=== PATIENT | female | born 1980 | race Caucasian/White ===

== ENCOUNTER 2018-02-02 22:43 | Emergency (ER) | payer MEDICAID, OTHER ==
[2018-02-02 23:04] VITALS: BP 123/64
[2018-02-02] MEDS ORDERED: KETOROLAC 60 MG/2 ML VIAL IM STA (23:33)
[2018-02-02] MEDS ORDERED: DEXAMETHASONE 10 MG/ML VIAL PO STA (23:33)
[2018-02-02] MEDS ORDERED: CHERRY SYRUP 10 ML UDC PO ONE (23:44)
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
== END 2018-02-03 00:43 | disposition home or self-care (01) ==
LOC: ED 22:43
DX: Z04.1 Encounter for examination and observation following transport accident (principal); M54.6 Pain in thoracic spine
CPT/HCPCS: 72070; 96372; 99283; A9270

== ENCOUNTER 2020-10-14 22:50 | Emergency (ER) | payer SELFPAY ==
--- OUTSIDE RECORDS SUMMARY | 2020-10-14 22:59 | EXTERNAL MEDICAL SUMMARY RPT | Continuity of Care Document ---
:1980 Demographics Phone Unavailable Preferred Language Unknown Marital Status Unknown Yazdanism Affiliation Unknown Race Unknown Ethnic Group Unknown Author Organization [facility] Address [address] [phone] Phone Social History date description facility [id number]
[2020-10-15] MEDS ORDERED: BUFFERED LIDOCAINE 10 ML SYRINGE SUBQ STA (00:56)
[2020-10-15] MEDS ORDERED: IBUPROFEN 600 MG TABLET PO STA (02:23)
--- NOTE | 2020-10-15 02:27 | ED Physician Documentation ---
History of Present Illness - Stated complaint Stated Complaint: R KNEE PX - Chief complaint Chief Complaint: Ext Problem - History obtained from History obtained from: Patient - Additonal information Additional information: 40-year-old woman, previously healthy presents with right knee pain and swelling progressively worsening, gradual in onset over the past 5 days, aching, worse with range of motion of the knee and ambulation, nonradiating and constant. Denies redness, fevers, traumatic injury, swelling anywhere else. Denies family history of rheumatoid arthritis, gout, or other joint issues. Review of Systems Ten Systems: 10 systems reviewed and negative Constitutional: denies: Fever, Chills Skin: denies: Rash, Lesions, Abrasion (s) Musculoskeletal: reports: Joint pain, Joint swelling Neurologic: denies: Focal weakness, Numbness PD PAST MEDICAL HISTORY - Past Medical History Past Medical History: No - Past Surgical History Past Surgical History: No - Present Medications Home Medications: Ambulatory Orders Medication Instructions Recorded Confirmed No Known Home Medications 10/14/20 10/14/20 - Allergies Allergies/Adverse Reactions: Allergies Allergy/AdvReac Type Severity Reaction Status Date / Time No Known Drug Allergies Allergy Verified 10/14/20 23:04 - Social History Does the pt smoke?: No Smoking Status: Never smoker Does the pt drink ETOH?: No Does the pt have substance abuse?: No - Immunizations Immunizations are current?: Yes - POLST Patient has POLST: No PD ED PE NORMAL - Vitals Vital signs reviewed: Yes - General General: Alert and oriented X 3, No acute distress, Well developed/nourished - HEENT HEENT: Atraumatic, PERRL, EOMI - Derm Derm: Normal color, Warm and dry, No rash - Extremities Extremities: No deformity, Other (Right knee discomfort with range of motion. Right knee palpable swelling. No calor or rubor compared to the left.) - Neuro Neuro: Alert and oriented X 3, No motor deficit, No sensory deficit - Psych Psych: Normal mood, Normal affect Results - Vitals Vitals: Vital Signs - 24 hr 10/14/20 23:00 Temperature 36.1 C L Heart Rate 87 Respiratory 16 Rate Blood Pressure 123/85 H O2 Saturation 99 Oxygen O2 Source Room air Procedures - Arthrocentesis Joint: Knee, Right Preparation: Consent obtained, Sterile prep and drape Anesthesia: Lidocaine 1% Fluid: Clear, Sent for cell count, Sent for crystals, Sent for culture, Fluid obtained - cc (40), Sent for gram stain Aftercare: Dressing applied, No complications, Patient tolerated well PD MEDICAL DECISION MAKING - ED course ED course: 40-year-old woman presents with right knee effusion of unknown origin. Arthrocentesis was performed successfully with minimal EBL and patient tolerated well. Sample was sent to the lab. Patient stated that she would prefer not to wait for the results and will follow up with her primary doctor. Strict return precautions given. Orthopedics referral also given. Departure - Departure Disposition: 01 Home, Self Care Clinical Impression: Knee effusion, right Condition: Good Instructions: ED Effusion Knee, ED RICE Follow-Up: Panfilo Cochran MD [Provider Admit Priv/Credential] - Comments: You were seen in the emergency department for a knee effusion. This means that you have a buildup of fluid in the joint of the knee. I removed 40 mL of fluid via arthrocentesis and sent it to the lab for analysis. You will need to follow-up with your primary doctor this week in regards to the results, which you can access on your patient health portal if you make an account on the [facility] website. You can create a username and password and then login to receive your results. Please call the [facility] main number if you need help making your account. Follow-up with your primary doctor this week and return to the emergency department if you experience any new or worsening symptoms or have other concerns.
[2020-10-15 02:32] VITALS: BP 117/73
[2020-10-15 02:48] LABS: CC,BF RBC < 3000 /mm^3
[2020-10-15 02:49] LABS: BF CLARITY CLEAR; BF SOURCE SYNOVIAL; CC,BF WBC 327 /mm^3
[2020-10-15 02:50] LABS: BF COLOR STRAW
[2020-10-15 03:57] LABS: LYMPHOCYTES %,BODY FLUID 18 %; NEUTROPHILS %, BF 9 %
[2020-10-15 04:01] LABS: MONOCYTES %,BODY FLUID 73 %
--- NOTE | 2020-10-15 07:49 | XRAY Report ---
PROCEDURE: Knee 2 View RT INDICATIONS: knee pain TECHNIQUE: 2 views of the right knee were acquired. COMPARISON: None. FINDINGS: Bones: No fractures or dislocations. There is mild joint space narrowing in the medial compartment. No suspicious bony lesions. Soft tissues: There is a small joint effusion. No suspicious soft tissue calcifications. IMPRESSION: 1. No fracture or dislocation. 2. Small joint effusion. Reviewed by: Moise Phillips MD on 10/15/2020 7:48 AM PDT Approved by: Moise Phillips MD on 10/15/2020 7:48 AM PDT Station ID: [id number]
== END 2020-10-15 02:43 | disposition home or self-care (01) ==
LOC: ED 22:50
DX: M25.461 Effusion, right knee (principal); M25.561 Pain in right knee
CPT/HCPCS: 20610; 73560; 87070; 87205; 89051; 89060; 99283; 99284; A9270